=== PATIENT | female | born 1955 | race Caucasian/White ===

== ENCOUNTER → 2019-12-24 | Day surgery (SDC) | payer BC ==
[~2019-12-24] MED LIST: Lactated Ringers 1,000 ML IV SCH; Propofol 200 MG/20 ML SDV IV ONE
--- NOTE | 2019-12-24 14:19 | OR ---
DATE OF OPERATION: 12/24/2019 PREOPERATIVE DIAGNOSIS: SCREENING COLONOSCOPY. POSTOPERATIVE DIAGNOSIS: SCREENING COLONOSCOPY. SURGEON: Jesus Durham MD PROCEDURE: FULL-LENGTH COLONOSCOPY WITH COLD FORCEPS POLYP REMOVAL X1. ANESTHESIA: MAC. COMPLICATIONS: None. SPECIMEN: Tubular adenomas x1, approximately 5 mm. FINDINGS: 1. Full-length colonoscopy. 2. Small tubular adenoma, sigmoid colon. RECOMMENDATIONS: Followup colonoscopy in 5 years. INDICATIONS: Mrs. Ndiaye was in for a routine physical. She is due for a screening colonoscopy. DESCRIPTION OF PROCEDURE: The patient was prepped and draped, placed in the left lateral decubitus position. A lubricated Olympus colonoscope was inserted and easily advanced to the cecum. Direct visualization of the ileocecal valve and appendiceal orifice was accomplished. The bowel prep was excellent. Upon withdrawal of the scope, the right and transverse colons were completely benign as was the descending colon. In the mid sigmoid colon, the patient had a small flatter tubular adenoma removed in its entirety with 2 cold forceps biopsies without problem. There were no signs of any other polyps, masses, ulceration, or bleeding sites. No vascular abnormalities or signs of diverticula. The rectal vault was benign. Retroflexion showed no perianal lesions. Air was suctioned, scope removed without complication. NICHOL/TONEY /[id number]
== END ==
LOC: CC.SDS 08:51
PROVIDERS: ATTEND Family Medicine
DX: Z12.11 Encounter for screening for malignant neoplasm of colon (principal); D12.5 Benign neoplasm of sigmoid colon; E55.9 Vitamin D deficiency, unspecified; E78.5 Hyperlipidemia, unspecified; F17.210 Nicotine dependence, cigarettes, uncomplicated; Z79.82 Long term (current) use of aspirin; Z79.899 Other long term (current) drug therapy; Z98.890 Other specified postprocedural states
CPT/HCPCS: 45380; J2704; J7120

== ENCOUNTER 2025-01-07 10:05 | Day surgery (SDC) | payer MEDICARE, BC ==
[2025-01-07] MEDS: Lactated Ringers 1,000 ML IV SCH (10:27)
[2025-01-07] MEDS ORDERED: Ketamine 200 MG/20 ML MDV ONE (10:45)
[2025-01-07] MEDS ORDERED: fentaNYL 50 MCG/ML SDV ONE (10:45)
[2025-01-07] MEDS ORDERED: Midazolam 1 MG/ML 2 ML SDV ONE (10:45)
[2025-01-07] MEDS ORDERED: Propofol 200 MG/20 ML SDV ONE (10:45)
[2025-01-07] MEDS ORDERED: Flumazenil 0.1 MG/ML 10 ML MDV ONE (10:45)
== END 2025-01-07 12:06 | disposition home or self-care (01) ==
LOC: CC.SDS 10:05
PROVIDERS: ATTEND Family Medicine
DX: Z12.11 Encounter for screening for malignant neoplasm of colon (principal); D12.7 Benign neoplasm of rectosigmoid junction; K57.30 Diverticulosis of large intestine without perforation or abscess without bleeding; Z86.0100 Personal history of colon polyps, unspecified; J43.9 Emphysema, unspecified; E78.5 Hyperlipidemia, unspecified; Z79.899 Other long term (current) drug therapy
CPT/HCPCS: 00811; 88305; J2250; J2704; J3010; J3490; J7120